=== PATIENT | male | born 1955 | race Caucasian/White ===

== ENCOUNTER → 2019-02-03 | Day surgery (SDC) | payer MEDICARE, BC ==
[~2019-02-03] MED LIST: ASPI-630 PO; ATOR10TA60 PO; CARV25TA2 PO; HYDROmorphone 2 MG/ML VIAL IV PRN; IV RINGERS,LACTATED 1000ML 1,000 ML IV SCH; LIDOCAINE 2% PF 5 ML VIAL. ONE; LISI10TA2 PO; MORPHINE SULFATE 2 MG/ML VIAL. IV PRN; ONDANSETRON PF 4 MG/2 ML VIAL. IV PRN; PIOG30TA41 PO; PROCHLORPERAZINE 10 MG/2 ML VIAL. IV PRN; PROPOFOL 40 ML IV ONE; fentaNYL PF VIAL 100 MCG/2 ML VIAL IV PRN
[2019-02-03 09:45] VITALS: BP 131/74
--- NOTE | 2019-02-04 15:07 | PATHOLOGY ---
[facility] Accession Number: [id number] . 01 Material submitted: . esophagus - ESOPHAGEAL BX . 01 Clinical history: . GERD, CRCS . 02 Diagnosis: Squamous epithelium "esophagus biopsy": - Reflux esophagitis with reactive squamous mucosa. - There is no evidence of goblet cell metaplasia, dysplasia or malignancy. - There is no eosinophilic esophagitis or acute ulceration. (SHA:martha; 02/04/2019) QMS/02/04/2019 . 02 Electronically signed: . Jase Martinez MD, Pathologist NPI- [id number] . 01 Gross description: . Received in formalin labeled "Jhony Juarez, esophageal BX, rule out esophagitis," are multiple segments of walters soft tissue measuring 0.9 x 0.2 x 0.1 cm in aggregate dimensions. The specimen is filtered and entirely submitted in cassette A1. (TSD; 02/03/2019) /TOB . 02 Pathologist provided ICD-10: K21.9 . 02 CPT . 763316 Specimen Comment: A courtesy copy of this report has been sent to Specimen Comment: [phone], . Specimen Comment: Report sent to / DR WATTS Performed at: 01 [facility] [address], [place], [place] [id number] MD Pedro Rizo MD Phone: [phone] Performed at: 02 [facility] [address] [place], [place] [id number] MD Jhony Meza MD Phone: [phone]
== END ==
LOC: ENDOS 08:00
PROVIDERS: ATTEND Internal Medicine Gastroenterology
DX: Z12.11 Encounter for screening for malignant neoplasm of colon (principal); K21.0 Gastro-esophageal reflux disease with esophagitis; K57.30 Diverticulosis of large intestine without perforation or abscess without bleeding; K64.0 First degree hemorrhoids; F32.9 Major depressive disorder, single episode, unspecified; E11.9 Type 2 diabetes mellitus without complications; F15.90 Other stimulant use, unspecified, uncomplicated; Z98.890 Other specified postprocedural states; Z79.82 Long term (current) use of aspirin; Z86.010 Personal history of colon polyps; Z79.84 Long term (current) use of oral hypoglycemic drugs
CPT/HCPCS: 43239; 82962; 88305; G0105; J2001; J2704; 45378